=== PATIENT | female | born 1960 | race Caucasian/White ===

== ENCOUNTER → 2020-11-04 | Outpatient (CLI) | payer BC | END | disposition home or self-care (01) | LOC: CFH 06:41 | PROVIDERS: ATTEND Student in an Organized Health Care Education/Training Program | DX: I25.89 Other forms of chronic ischemic heart disease (principal); R07.9 Chest pain, unspecified; I10 Essential (primary) hypertension | CPT/HCPCS: 78452; 93017; A9502 ==